=== PATIENT | female | born 1950 | race African-American/Black ===

== ENCOUNTER 2017-03-28 11:08 | Emergency (ER) | payer MEDICARE, BC ==
[~2017-03-28 11:08] MED LIST: ADVAIR INH; ASTEPRO0.15 % NAS; NORV10 PO; PRAVACHOL40 MG PO; PREV30 PO; SPIRIVA INH; VENTOLIN HFA INH; VITAMIN D31000 UNIT PO
[2017-03-28 11:18] LABS: BASOPHILS 0.4 %; BASOPHILS ABSOLUTE 0.04 10/3/uL (0.0-0.16); EOSINOPHILS 3.9 %; EOSINOPHILS ABSOLUTE 0.39 10/3/uL (0.0-0.53); HEMOGLOBIN 14.6 g/dL (12.0-16.0); IMMATURE GRANULOCYTES 0.2 %; IMMATURE GRANULOCYTES ABSOLUTE 0.02 10/3/uL (0.0-0.11); LYMPHOCYTES 27.1 %; LYMPHOCYTES ABSOLUTE 2.68 10/3/uL (0.67-4.30); MEAN CORPUS HGB CONC 33.3 g/dL (32.0-36.0); MEAN CORPUSCULAR HEMOGLOB 28.3 pg (26.0-34.0); MEAN CORPUSCULAR VOLUME 85.2 fL (80-100); MEAN PLATELET VOLUME 9.8 fL (9.2-13.0); MONOCYTES 6.1 %; NEUTROPHILS 62.3 %; NEUTROPHILS ABSOLUTE 6.17 10/3/uL (2.02-8.40); PLATELET COUNT 236 10/3/uL (150-400); RBC DISTRIBUTION WIDTH 15.9 % (12.0-16.0); RED CELL COUNT 5.15 10/6/uL (4.0-5.6); WHITE BLOOD CELLS 9.9 10/3/uL (4.5-10.5)
[2017-03-28 11:19] LABS: HEMATOCRIT 43.9 % (36.0-48.0); MANUAL DIFF NO %
[2017-03-28 11:25] LABS: INTERNATIONAL NORMAL RATI 1.1 UNITS (-); PARTIAL THROMBO TIME 28.1 SEC (22.5-37.2); PROTIME (NOT ORD) 14.3 SEC (12.0-14.5)
[2017-03-28 11:35] LABS: BUN (BLOOD UREA NITROGEN) 9 MG/DL (6-23); CALCIUM, SERUM 9.4 MG/DL (8.5-10.4); CHEST PAIN PROFILE TAT 0 Hrs 23 Mins; CHLORIDE, SERUM 108 MMOL/L (96-112); CO2 (CARBON DIOXIDE) 27 MMOL/L (24-34); CREATININE 0.94 MG/DL (0.55-1.02); GFR AFRICAN AMERICAN 72 ML/MIN (>=60); GFR NON AFRICAN AMERICAN 62 ML/MIN (>=60); GLUCOSE, SERUM 127 MG/DL (60-99); POTASSIUM, SERUM 3.6 MMOL/L (3.5-5.3); SODIUM, SERUM 142 MMOL/L (135-148); TROPONIN I <0.02 NG/ML (<0.05)
[2017-03-29 08:27] LABS: ALLENS TEST Pos; BE (BASE EXCESS) -2.2 MEQ/L (0 +/- 2.5); CARBOXYHEMOGLOBIN 4.4 % (0-3); HCO3 (ACTUAL BICARBONATE) 22.8 MEQ/L (23-27); HEMOBLOGIN CONTENT 14.9 G/DL (12-16); INSTRUMENT SERIAL # 8087; METHEMOGLOBIN 0.1 % (0-3); O2 CONTENT 18.3 VOL% (18-24); OPERATOR ID 14335; PCO2 (CO2 TENSION) 40 MMHG (35-45); PO2 (O2 TENSION) 62 MMHG (79-93); SAMPLE Arterial; pH 7.37 (7.37-7.43)
[2017-03-29] MEDS ORDERED: NORV10 PO (22:27)
[2017-03-29] MEDS ORDERED: PRAVACHOL40 MG PO (22:27)
[2017-03-29] MEDS ORDERED: ANOROELLIPTA INH (22:27)
[2017-03-29] MEDS ORDERED: KLOR-CON 1010 MEQ PO (22:28)
[2017-03-29] MEDS ORDERED: GLUCOPHAGE1000 MG PO (22:28)
[2017-03-29] MEDS ORDERED: L20 PO (22:28)
[2017-03-29] MEDS ORDERED: ALPHAGAN P0.1 % OPH (22:29)
[2017-03-29] MEDS ORDERED: PREDFORTE OPH (22:29)
[2017-03-29] MEDS ORDERED: VITAMIN D31000 UNIT PO (22:30)
[2017-03-29] MEDS ORDERED: ZYRTEC-D ALG PO (22:30)
[2017-03-29] MEDS ORDERED: PREV15 PO (22:30)
[2017-03-29] MEDS ORDERED: PROAIR HFA INH (22:31)
[2017-03-31] MEDS ORDERED: P20 PO (15:16)
[2017-03-31] MEDS ORDERED: LEVAQUIN750 MG PO (15:16)
== END 2017-03-28 12:41 | disposition home or self-care (01) ==
LOC: ER 11:08
PROVIDERS: Nurse Practitioner
DX: J40 Bronchitis, not specified as acute or chronic (principal); I10 Essential (primary) hypertension; E11.9 Type 2 diabetes mellitus without complications; Z85.3 Personal history of malignant neoplasm of breast; Z98.890 Other specified postprocedural states; Z90.11 Acquired absence of right breast and nipple; Z88.8 Allergy status to other drugs, medicaments and biological substances; Z79.899 Other long term (current) drug therapy
CPT/HCPCS: 36600; 71020; 80048; 82805; 83605; 83735; 83880; 84484; 85025; 85610; 85730; 87040; 87070; 87205; 93005; 94640; 96374; 99285; A9270-GY; J2930